=== PATIENT | male | born 2000 | race Asian ===

== ENCOUNTER → 2018-10-14 | Outpatient (CLI) | payer SELFPAY ==
[2018-10-14 13:36] LABS: HEMATOCRIT 46.1 % (42.0-52.0); HEMOGLOBIN 15.9 g/dl (13.5-17.5); MEAN CORPUSCULAR HEMOGLOBIN 29.9 pg (27.0-33.0); MEAN CORPUSCULAR HGB CONC 34.5 g/dl (32.0-36.5); MEAN CORPUSCULAR VOLUME 86.7 fl (80.0-96.0); PLATELET COUNT, AUTOMATED 239 10^3/uL (150-450); RED BLOOD COUNT 5.32 10^6/uL (4.30-6.10); WHITE BLOOD COUNT 6.1 10^3/uL (4.0-10.0)
[2018-10-14 13:43] LABS: ALBUMIN 4.7 GM/DL (3.2-5.2); ALT/SGPT 21 U/L (12-78); BILIRUBIN,TOTAL 0.4 MG/DL (0.2-1.0); BLOOD UREA NITROGEN 15 MG/DL (7-18); CALCIUM LEVEL 9.6 MG/DL (8.5-10.1); CARBON DIOXIDE LEVEL 30 MEQ/L (21-32); CHLORIDE LEVEL 105 MEQ/L (98-107); CREATININE FOR GFR 1.26 MG/DL (0.70-1.30); GLUCOSE, FASTING 88 MG/DL (70-100); POTASSIUM SERUM 4.5 MEQ/L (3.5-5.1); SODIUM LEVEL 141 MEQ/L (136-145); TOTAL PROTEIN 7.8 GM/DL (6.4-8.2)
[2018-10-14 14:15] LABS: APPEARANCE, URINE CLEAR (CLEAR); BACTERIA, URINE AUTO NEGATIVE (NEGATIVE); BILIRUBIN, URINE AUTO NEGATIVE (NEGATIVE); BLOOD, URINE BLOOD NEGATIVE (NEGATIVE); COLOR, URINE YELLOW (YELLOW); GLUCOSE, URINE (UA) AUTO NEGATIVE (NEGATIVE); KETONE, URINE AUTO NEGATIVE (NEGATIVE); LEUKOCYTE ESTERASE, URINE AUTO NEGATIVE (NEGATIVE); MUCUS, URINE SMALL (NEGATIVE); NITRITE, URINE AUTO NEGATIVE (NEGATIVE); PROTEIN, URINE AUTO NEGATIVE (NEGATIVE); RBC, URINE AUTO 0 /HPF (0-3); SPECIFIC GRAVITY URINE AUTO 1.026 (1.002-1.035); SQUAMOUS EPITHELIAL CELL UR AU 0 /HPF (0-6); UROBILINOGEN, URINE AUTO 0.2 mg/dL (0.0-2.0); WBC, URINE AUTO 1 /HPF (0-3)
[2018-10-14 15:53] LABS: CHLAMYDIA DNA AMPLIFICATION NEGATIVE (NEGATIVE); GC DNA AMPLIFICATION NEGATIVE (NEGATIVE)
[2018-10-14 16:00] LABS: HEPATITIS B SURFACE ANTIBODY NEGATIVE (POSITIVE)
[2018-10-14 16:11] LABS: HEPATITIS B SURFACE ANTIGEN NEGATIVE (NEGATIVE)
[2018-10-14 16:39] LABS: HEPATITIS B CORE ANTIBODY IGM NEGATIVE (NEGATIVE); HEPATITIS C VIRUS ABY INDEX < 0.0 INDEX (<0.8)
[2018-10-14 16:40] LABS: HIV 1&2 SCREEN CENTAUR NEGATIVE (NEGATIVE)
== END ==
LOC: M LRY 11:15
PROVIDERS: ATTEND Nurse Practitioner Family
DX: Z00.00 Encounter for general adult medical examination without abnormal findings (principal)

== ENCOUNTER → 2018-10-17 | Outpatient (CLI) | payer OTHER ==
--- NOTE | 2018-10-17 14:41 | REP ---
RIGHT FOOT, FOUR VIEWS: HISTORY: Injury. There is no acute fracture or dislocation. A 5 mm round metallic density is present in the medial tarsal bones. IMPRESSION:There is no acute fracture or dislocation. Electronically Signed by Mata French MD 10/17/2018 02:47 P
--- NOTE | 2018-10-17 14:50 | REP ---
RIGHT ANKLE, FOUR VIEWS: HISTORY: Injury. There is no acute fracture or dislocation. The joint space is normal in appearance. Soft tissue swelling is present. A 5 mm round metallic density is present overlying the tarsal bones. IMPRESSION: There is no acute fracture or dislocation. Electronically Signed by Mata French MD 10/17/2018 02:51 P
== END ==
LOC: M RAD 13:46
PROVIDERS: ATTEND Nurse Practitioner Family
DX: M79.671 Pain in right foot (principal); M79.661 Pain in right lower leg

== ENCOUNTER → 2018-10-21 | Outpatient (CLI) | payer OTHER ==
--- NOTE | 2018-10-21 09:01 | REP ---
Tissue ultrasound left calf. History: New mass posterior left calf. Palpable soft tissue mass. Findings: Scanning over the area of the palpable abnormality demonstrates a slightly hyperechoic area in the subcutaneous fat measuring 3.0 x 0.9 x 2.5 cm. Its long axis is parallel to the skin. There is no evidence of disruption of the underlying fascia or muscle. 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 No abnormal fluid collection. Study is otherwise unremarkable. Clinical follow-up is advised. Electronically Signed by Arnie Morales MD 10/21/2018 02:38 P
== END ==
LOC: M RAD 06:30
PROVIDERS: ATTEND Nurse Practitioner Family
DX: R22.42 Localized swelling, mass and lump, left lower limb (principal)

== ENCOUNTER 2018-11-06 16:53 | Emergency (ER) | payer OTHER ==
[~2018-11-06] VITALS: Ht 175.3 cm; Wt 75.5 kg
[2018-11-06 18:38] VITALS: BP 117/70
--- NOTE | 2018-11-06 18:57 | REP ---
Right ankle four views History: Pain Comparison : 10/17/2018 There is no acute fracture or dislocation. The joint space is normal in appearance. A 5 mm metallic density is present overlying of the tarsal bones. Impression: There is no acute fracture or dislocation. Electronically Signed by Mata French MD 11/06/2018 06:49 P
== END 2018-11-06 18:49 | disposition home or self-care (01) ==
LOC: M ED 16:53
DX: S93.401A Sprain of unspecified ligament of right ankle, initial encounter (principal); X50.9XXA Other and unspecified overexertion or strenuous movements or postures, initial encounter; Y92.89 Other specified places as the place of occurrence of the external cause; Y93.67 Activity, basketball

== ENCOUNTER → 2019-01-13 | Outpatient (CLI) | payer MEDICAID ==
--- NOTE | 2019-01-13 12:09 | REP ---
MRI RIGHT ANKLE: TECHNIQUE: Sagittal proton density, STIR, axial proton density fat sat, T1, coronal proton density, STIR. There is a metallic foreign body in the foot as seen on plain films 11/06/2018 located at the level of the navicular and cuboid bones. This causes extensive surrounding artifact and obscures the anterior talus and calcaneus. Hindfoot structures are visualized but there is some limited visualization of the inferior hindfoot structures. Achilles tendon is intact with no abnormality identified. The visualized portions of the anterior tibial, posterior tibial, flexor hallucis longus, flexor digitorum longus, and peroneal tendons all appear to be intact. The anterior and posterior talofibular ligaments, tibiofibular ligaments and deltoid ligaments are intact. Calcaneofibular ligament could not be visualized. Posterior plantar tendon is intact. Visualized osseous structures demonstrate normal marrow signal, with no marrow edema or occult fracture. Normal amount of joint fluid is seen. No other soft tissue abnormality is seen. IMPRESSION: Metallic artifact from a foreign body in the foot at the level of the navicular and cuboid bones. Limited visualization of the anterior and inferior ankle structures but the visualized structures do appear to be unremarkable as discussed in detail above. Electronically Signed by Naeem Gonzalez MD 01/17/2019 09:58 A
== END ==
LOC: M RAD 08:52
PROVIDERS: ATTEND Orthopaedic Surgery
DX: M25.371 Other instability, right ankle (principal); Z18.11 Retained magnetic metal fragments

== ENCOUNTER 2019-05-11 13:31 | Day surgery (SDC) | payer MEDICAID ==
[~2019-05-11] VITALS: Ht 175.3 cm; Wt 84.3 kg
[~2019-05-11 13:31] MED LIST: CVS10CAP7 PO; ERYT2PAD2 TOP; FLON1SPR; LR 1,000 ML IV ONE
[2019-05-11] MEDS ORDERED: dexameTHASONE 10 MG/1 ML VIAL PRES.FREE (J1100) ONE (13:32)
[2019-05-11] MEDS ORDERED: LIDOCAINE 1% MDV 20ML VIAL ONE (13:32)
[2019-05-11] MEDS ORDERED: ROPIvacaine 0.5% 30 ML INJECTION (J2795 PER 1MG) ONE (13:32)
[2019-05-11] MEDS ORDERED: MIDAZOLAM INJ 2 MG/2 ML VIAL (J2250) As Ordered ONE (16:09)
[2019-05-11] MEDS ORDERED: fentaNYL 100 MCG/2 ML INJECTION (J3010) As Ordered ONE ×2 (16:09→16:26)
[2019-05-11] MEDS ORDERED: PROPOFOL 200 MG/20 ML VIAL As Ordered ONE ×3 (16:27→17:03)
[2019-05-11] MEDS ORDERED: LIDOCAINE 2% INJ 100 MG/5 ML SDV (FOR ANES.) As Ordered ONE (16:27)
[2019-05-11] MEDS ORDERED: EPINEPHrine INJ 1 MG/ML 1ML AMP As Ordered ONE (16:42)
[2019-05-11] MEDS ORDERED: fentaNYL 100 MCG/2 ML INJECTION (J3010) IV SCH (16:45)
[2019-05-11] MEDS ORDERED: MIDAZOLAM INJ 2 MG/2 ML VIAL (J2250) IV SCH (16:45)
[2019-05-11] MEDS ORDERED: dexameTHASONE 4 MG/ML 1ML VIAL (J1100) As Ordered ONE (17:13)
[2019-05-11] MEDS ORDERED: ONDANSETRON 4MG/2ML VIAL (J2405) As Ordered ONE (17:13)
[2019-05-11] MEDS ORDERED: ONDANSETRON 4MG/2ML VIAL (J2405) IV PRN (21:00)
[2019-05-11] MEDS ORDERED: PERCOCET 5MG/325MG TAB PO PRN (21:00)
[2019-05-11] MEDS ORDERED: HYDROMORPHONE HCL 0.5 MG/ 0.5 ML SYRINGE (J1170 PER 1) IV PRN (21:00)
[2019-05-11] MEDS ORDERED: LR 1,000 ML IV SCH ×2 (21:00)
[2019-05-11] MEDS ORDERED: fentaNYL 100 MCG/2 ML INJECTION (J3010) IV PRN (21:00)
[2019-05-11 21:40] VITALS: BP 140/76
--- NOTE | 2019-05-12 14:08 | RO ---
DATE OF PROCEDURE: 05/11/2019 PREPROCEDURE DIAGNOSIS: Right ankle instability. POSTPROCEDURE DIAGNOSIS: Right ankle instability. PROCEDURE: 1. Right ankle arthroscopy with debridement of the tibiotalar joint and synovectomy. 2. Right Brostrom procedure. SURGEON: Dr. Radha Bertrand [employer] PROFESSOR: Dr. Lacho Nicolas. ANESTHESIA: Laryngeal mask anesthesia (LMA) and popliteal nerve block. ESTIMATED BLOOD LOSS: 25 mL. COMPLICATIONS: None. CONDITION: Stable in recovery. INDICATION: Caesar Senior is a 18-year-old male who has a longstanding ankle instability. He has failed conservative measures. Risks and benefits of the surgery were discussed with the patient and these include but are not limited to infection, damage to nerves and blood vessels, continued pain and stiffness, need for additional procedures. DESCRIPTION OF PROCEDURE: Patient was met in the holding area where his right lower extremity was marked as the correct operative site. He will now go onto the postanesthesia care unit (PACU) and have a nerve block. He was then taken to the operating room where a well-padded tourniquet was placed on his right upper thigh. The right lower extremity underwent a chlorhexidine scrub. The leg was placed with the thigh bennett. It was then prepped and draped in the normal sterile fashion. An official time-out was held where the correct patient, operative site and operative procedure were verified. Following this, the leg was placed into the traction device. Lacho Nicolas MD assisted with the arthroscopic portion of the case. A medial portal was established just medial to the tibialis anterior tendon. There was no evidence of an osteochondral lesion or either the talus or the tibia. There was an impingement lesion, which was debrided. There was some moderate synovitis at the anterior portion of the joint and this was also debrided. Following this, the portals were closed using #3-0 nylon. The thigh bennett was removed. An incision was then made over the anterolateral aspect of the distal fibula. Care was taken to retract small branches of the superficial peroneal nerve, which were present anteriorly. A cuff of tissue were sharply excised off of the distal fibula. The peroneal tendons were identified and protected as I came to the region of the calcaneofibular ligament (CFL). All tissues removed from this itself using curet and Bovie. Following this two #3-0 SutureTak Arthrex anchors were placed in the region of the anterior talofibular ligament (ATFL) and CFL. These were both doubly-loaded anchors. The foot was held in neutral position and the sutures were tied down. There was a nice bumper of tissue following this. This was further reinforced with #2-0 Vicryl and #2-0 Vicryl were appropriate. The globe portion of the procedure was performed using 0 Vicryl. At this point, anterior draw was stable as was the talar tilt testing. The wound was copiously irrigated. Soft tissues were closed using #3-0 Vicryl and skin was closed using #3-0 nylon. A sterile dressing was applied and the patient was placed into a well-padded cast in slight eversion. He was then extubated and brought to the recovery room in stable condition. PLAN: Patient will be non-weightbearing of the right lower extremity. He will be on aspirin for deep venous thrombosis (DVT) prophylaxis. I will see him back in 2 weeks for suture removal.
== END 2019-05-11 21:50 | disposition home or self-care (01) ==
LOC: M SDC 13:31
PROVIDERS: ATTEND Orthopaedic Surgery
DX: M25.371 Other instability, right ankle (principal); F41.9 Anxiety disorder, unspecified; Z79.899 Other long term (current) drug therapy; Z87.891 Personal history of nicotine dependence
CPT/HCPCS: 27698; 29897; C1713; J0690; J1100; J2250; J2405; J2795; J3010

== ENCOUNTER → 2019-09-25 | Outpatient (CLI) | payer MEDICAID ==
[~2019-09-25] MED LIST changes: -LR 1,000 ML IV ONE
[2019-09-25 16:57] LABS: HEMATOCRIT 44.5 % (42.0-52.0); HEMOGLOBIN 14.7 g/dl (13.5-17.5); MEAN CORPUSCULAR HEMOGLOBIN 28.9 pg (27.0-33.0); MEAN CORPUSCULAR VOLUME 87.6 fl (80.0-96.0); PLATELET COUNT, AUTOMATED 201 10^3/uL (150-450); RED BLOOD COUNT 5.08 10^6/uL (4.30-6.10); WHITE BLOOD COUNT 8.8 10^3/uL (4.0-10.0)
[2019-09-25 17:01] LABS: APPEARANCE, URINE CLEAR (CLEAR); BACTERIA, URINE AUTO NEGATIVE (NEGATIVE); BILIRUBIN, URINE AUTO NEGATIVE (NEGATIVE); BLOOD, URINE BLOOD NEGATIVE (NEGATIVE); COLOR, URINE YELLOW (YELLOW); GLUCOSE, URINE (UA) AUTO NEGATIVE (NEGATIVE); KETONE, URINE AUTO NEGATIVE (NEGATIVE); LEUKOCYTE ESTERASE, URINE AUTO NEGATIVE (NEGATIVE); MUCUS, URINE SMALL (NEGATIVE); NITRITE, URINE AUTO NEGATIVE (NEGATIVE); PROTEIN, URINE AUTO NEGATIVE (NEGATIVE); RBC, URINE AUTO 0 /HPF (0-3); SPECIFIC GRAVITY URINE AUTO 1.016 (1.002-1.035); SQUAMOUS EPITHELIAL CELL UR AU 0 /HPF (0-6); UROBILINOGEN, URINE AUTO 0.2 mg/dL (0.0-2.0); WBC, URINE AUTO 0 /HPF (0-3)
[2019-09-25 17:03] LABS: ALBUMIN 4.1 GM/DL (3.2-5.2); ALT/SGPT 76 U/L (12-78); BILIRUBIN,TOTAL 0.5 MG/DL (0.2-1.0); BLOOD UREA NITROGEN 20 MG/DL (7-18); CARBON DIOXIDE LEVEL 27 MEQ/L (21-32); CHLORIDE LEVEL 107 MEQ/L (98-107); CREATININE FOR GFR 1.21 MG/DL (0.70-1.30); GLUCOSE, FASTING 93 MG/DL (70-100); POTASSIUM SERUM 3.8 MEQ/L (3.5-5.1); SODIUM LEVEL 140 MEQ/L (136-145); TOTAL PROTEIN 6.8 GM/DL (6.4-8.2)
== END ==
LOC: M LRY 12:53
PROVIDERS: ATTEND Nurse Practitioner Family
DX: Z00.00 Encounter for general adult medical examination without abnormal findings (principal)